=== PATIENT | male | born 1980 | race Caucasian/White ===

== ENCOUNTER → 2017-11-10 08:56 | Outpatient (CLI) | payer OTHER, SELFPAY ==
[2017-11-10 10:32] LABS: Absolute Neutrophil Count 2.3 X10^3/uL (2.0-7.7); Basophil# 0.03 X10^3/uL; Basophil% 0.6 % (0-1); Eosinophil# 0.23 X10^3/uL; Eosinophils% 4.5 % (0-5); Hematocrit 43.2 % (40-54); Hemoglobin 16.2 g/dl (13.0-16.5); Lymphocyte % 37.5 % (19-41); Mean Platelet Vol. 9.9 fl (6.2-12.0); Monocyte# 0.49 X10^3/uL; Monocyte% 9.7 % (0-10); Neutrophil # 2.32 X10^3/uL (2.7-7.7); Neutrophil % 45.7 % (47-70); Platelet Count 218 K/mm3 (150-450); RBC Distribution Width CV 11.5 % (11.6-14.6); RBC Distribution Width SD 36.9 fl (35.1-43.9); White Blood Count 5.1 K/mm3 (4.4-11.0)
[2017-11-10 10:34] LABS: Mean Corpuscular Hgb 33.8 pg (27.0-32.0)
[2017-11-10 10:35] LABS: Mean Corp Hgb Conc 37.5 g/gl (32-36); POSITIVE COUNT NO; POSITIVE DIFFERENTIAL NO; POSITIVE MORPHOLOGY NO
[2017-11-10 10:49] LABS: Anion Gap 8 (5-15); BUN 14 mg/dL (7-18); BUN/Creat Ratio 13.3 RATIO (10-20); Calcium,Total 9.4 mg/dL (8.5-10.1); Chloride 105 mmol/L (98-107); Creatinine, Serum 1.05 mg/dL (0.70-1.30); EST Glomerular Filtration Rate 85 mL/min (>60); Est Glom Filt Rate - Afr Amer 103 mL/min (>60); Glucose 108 mg/dL (74-106); Sodium Level 140 mmol/L (136-145); Uric Acid 9.9 mg/dL (3.5-7.2)
[2017-11-13 12:54] LABS: Pathologist Review Reviewed
== END ==
PROVIDERS: Family Provider Family Medicine; PCP Family Medicine; Visit Provider Family Medicine
DX: M10.9 Gout, unspecified (principal)
CPT/HCPCS: 36415; 80048; 84550; 85025

== ENCOUNTER → 2021-12-09 | Outpatient (CLI) | payer OTHER, SELFPAY ==
[2021-12-09 10:36] LABS: Anion Gap 7 (5-15); BUN 15 mg/dL (7-18); BUN/Creat Ratio 15.5 RATIO (10-20); Calcium,Total 9.6 mg/dL (8.5-10.1); Chloride 106 mmol/L (98-107); Cholesterol 218 mg/dL (200); Creatinine, Serum 0.97 mg/dL (0.70-1.30); EST Glomerular Filtration Rate 91 mL/min (>60); Est Glom Filt Rate - Afr Amer 110 mL/min (>60); Glucose 117 mg/dL (74-106); High Density Lipoprotein 38 mg/dL; Potassium 4.1 mmol/L (3.5-5.1); Sodium Level 139 mmol/L (136-145); Triglycerides 250 mg/dL; Uric Acid 7.9 mg/dL (3.5-7.2); Very Low Density Lipoprotein 50 mg/dL (5-40)
== END | disposition home or self-care (01) ==
LOC: MFPLAB 08:45
PROVIDERS: PCP Family Medicine; Referring Provider Family Medicine; Visit Provider Family Medicine
DX: I10 Essential (primary) hypertension (principal); M10.9 Gout, unspecified
CPT/HCPCS: 36415; 80048; 80061; 84550